=== PATIENT | male | born 1945 | race Caucasian/White ===

== ENCOUNTER → 2016-06-07 | Outpatient (CLI) | payer MEDICARE, OTHER ==
[~2016-06-07] MED LIST: ASPI-586 PO; ATOR40TA2 PO; GLIM2TAB PO; HYDR-3702 PO; LSNP20T PO; METF500T4 PO; METO25TA60 PO; WARF1TAB PO
--- NOTE | 2016-06-07 13:52 | Diagnostic Imaging Report ---
PROCEDURE: US Carotid Duplex Bilateral. TECHNIQUE: Multiple real-time grayscale images were obtained over the carotid arteries in various projections bilaterally. Additional duplex Doppler and color Doppler images were also obtained. INDICATION: Moderate atherosclerosis, occlusion of the right internal carotid artery. COMPARISON: 04/15/14. 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 Flow in the common carotid artery is stable. Normal vertebral artery flow is seen bilaterally. Moderate irregular plaque is seen scattered throughout the left common carotid and internal carotid artery. By Doppler criteria, there is no measurable stenosis. The degree of atherosclerotic disease has slightly increased. IMPRESSION: 1. Increasing atherosclerotic disease within the left carotid system. However, no measurable stenosis by Doppler criteria. 2. 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 3. Normal vertebral artery flow. Dictated by: Dictated on workstation # [id number]
== END ==
LOC: RAD 12:42
PROVIDERS: ATTEND Family Medicine
DX: I65.23 Occlusion and stenosis of bilateral carotid arteries (principal)
CPT/HCPCS: 93880